=== PATIENT | female | born 1950 | race Caucasian/White ===

== ENCOUNTER → 2018-08-22 | Outpatient (CLI) | payer MEDICARE ==
--- NOTE | 2018-08-22 12:46 | BD ---
EXAMINATION TYPE: Axial Bone Density DATE OF EXAM: 08/22/2018 COMPARISON: 08.02.2016 CLINICAL HISTORY: 68 YR OLD FEMALE....ICD-10 CODE: M81.0 OSTEOPOROSIS Height: 65.2 Weight: 177 FRAX RISK QUESTIONS: NOTHING TO NOTE HERE RISK FACTORS HISTORY OF: Diet low in dairy products/other sources of calcium: YES A BIT Postmenopausal woman: 49 Lost more than 2 inches in height since high school: YES MEDICATIONS: Additional Medications: REFLUX MEDS, MULTI VIT, XANAX, ASPIRIN, ADAPEX, Additional History: GURD, ANXIETY, HARD OF HEARING EXAM MEASUREMENTS: Bone mineral densitometry was performed using the [employer] System. Bone mineral density as measured about the Lumbar spine is: ----- L1-L4(G/cm2): 1.374 T Score Values are as follows: ----- L1: 0.2 ----- L2: 0.0 ----- L3: 0.8 ----- L4: 4.8 ----- L1-L4: 1.6 Bone mineral density has: Increased 4.8% since study of: 08.02.2016 Bone mineral density about the R hip (g/cm2): 0.996 Bone mineral density about the L hip (g/cm2): 1.069 T Score values are as follows: -----R Neck: -1.0 -----L Neck: -1.0 -----R Total: -0.1 -----L Total: 0.5 Bone mineral density has: Increased 1.4% since study of: 08.02.2016 FRAX%s: THERE IS A 8.6% CHANCE FOR A MAJOR OSTEOPOROTIC FX AND A 0.9% FOR HIP.....PROBABILITY OF FX IN 10 YRS TIME IMPRESSION: No evidence for osteoporosis or osteopenia. NOTE: T-SCORE=SD OF THE YOUNG ADULT MEAN.
--- NOTE | 2018-08-23 13:38 | MM ---
Reason for exam: screening (asymptomatic). Last mammogram was performed 1 year and 1 month ago. History: Patient is postmenopausal. Physical Findings: A clinical breast exam by your physician is recommended on an annual basis and results should be correlated with mammographic findings. MG 3D Screening Mammo W/Cad Bilateral CC and MLO view(s) were taken. Prior study comparison: August 01, 2017, bilateral MG 3d screening mammo w/cad. August 02, 2016, bilateral MG 3d screening mammo w/cad. The breast tissue is heterogeneously dense. This may lower the sensitivity of mammography. There is chronic nodularity in the left breast. There is no discrete abnormality. ASSESSMENT: Negative, BI-RAD 1 RECOMMENDATION: Routine screening mammogram of both breasts in 1 year.
== END | disposition home or self-care (01) ==
LOC: RADMAMWWP 08:11
PROVIDERS: ATTEND Internal Medicine
DX: Z12.31 Encounter for screening mammogram for malignant neoplasm of breast (principal); M81.0 Age-related osteoporosis without current pathological fracture; Z87.39 Personal history of other diseases of the musculoskeletal system and connective tissue
CPT/HCPCS: 77063; 77067; 77080

== ENCOUNTER → 2020-10-19 | Outpatient (CLI) | payer MEDICARE ==
--- NOTE | 2020-10-19 11:08 | BD ---
EXAMINATION TYPE: Axial Bone Density DATE OF EXAM: 10/19/2020 COMPARISON: 08.22.2018 CLINICAL HISTORY: 70 YR OLD FEMALE....ICD-10 CODE: M81.0 AGE RELATED OSTEOPOROSIS Height: 65 Weight: 150 FRAX RISK QUESTIONS: NOTHING TO NOTE HERE RISK FACTORS HISTORY OF: Postmenopausal woman: YES, AT AGE 49 Hyperparathyroidism: NO Adrenal Insufficiency: NO MEDICATIONS: Additional Medications: REFLUX MEDS, ANDVIT D AND CALCIUM Additional History: PT CANNOT HEAR, MASKS MAKE DIFFICULT HISTORY TAKING, ARTHRITIS EXAM MEASUREMENTS: Bone mineral densitometry was performed using the [employer] System. Bone mineral density as measured about the Lumbar spine is: ----- L1-L4(G/cm2): 1.337 T Score Values are as follows: ----- L1: -0.6 ----- L2: 0.6 ----- L3: 1.2 ----- L4: 3.9 ----- L1-L4: 1.3 Bone mineral density has: Decreased -0.7% SINCE: 08.22.2018 Bone mineral density about the R hip (g/cm2): 0.938 Bone mineral density about the L hip (g/cm2): 0.989 T Score values are as follows: -----R Neck: -1.6 -----L Neck: -1.5 -----R Total: -0.6 -----L Total: -0.2 Bone mineral density has: Decreased -6.9% SINCE: 08.22.2018 FRAX%s: THERE IS A 10.9% CHANCE FOR A MAJOR OSTEOPOROTIC FX AND A 1.9% FOR HIP......PROBABILITY FO R FX IN 10 YRS TIME IMPRESSION: Osteopenia (T Score between -2.5 and -1) is now present femoral neck level both hips. Bone density de crease or diminished from prior. There is slightly increased risk of fracture and the patient may be considered for treatment. Re-Screen 2-5 years. NOTE: T-SCORE=SD OF THE YOUNG ADULT MEAN.
--- NOTE | 2020-10-20 10:16 | MM ---
Reason for exam: screening (asymptomatic). Last mammogram was performed 2 years and 2 months ago. History: Patient is postmenopausal. Physical Findings: A clinical breast exam by your physician is recommended on an annual basis and results should be correlated with mammographic findings. MG 3D Screening Mammo W/Cad Bilateral CC and MLO view(s) were taken. Prior study comparison: August 22, 2018, bilateral MG 3d screening mammo w/cad. August 01, 2017, bilateral MG 3d screening mammo w/cad. The breast tissue is heterogeneously dense. This may lower the sensitivity of mammography. There is chronic nodularity bilaterally. No significant changes when compared with prior studies. ASSESSMENT: Benign, BI-RAD 2 RECOMMENDATION: Routine screening mammogram of both breasts in 1 year.
== END | disposition home or self-care (01) ==
LOC: RADMAMWWP 10:26
PROVIDERS: ATTEND Internal Medicine
DX: Z12.31 Encounter for screening mammogram for malignant neoplasm of breast (principal); M85.89 Other specified disorders of bone density and structure, multiple sites
CPT/HCPCS: 77063; 77067; 77080

== ENCOUNTER → 2022-11-17 | Outpatient (CLI) | payer MEDICARE ==
--- NOTE | 2022-11-17 14:29 | BD ---
EXAMINATION TYPE: Axial Bone Density DATE OF EXAM: 11/17/2022 CLINICAL HISTORY: 72 years old Female. ICD-10 CODE: M85.851 OSTEOPENIA Height: 65 Weight: 161lb FRAX RISK QUESTIONS: Secondary Osteoporosis: RISK FACTORS HISTORY OF: Active: yes Postmenopausal woman: yes MEDICATIONS: Additional Medications: Omeprazole Additional History: EXAM MEASUREMENTS: Bone mineral densitometry was performed using the [employer] System. Bone mineral density as measured about the Lumbar spine is: ----- L1-L4(G/cm2): 1.248 T Score Values are as follows: ----- L1: -1.5 ----- L2: -0.3 ----- L3: 0.1 ----- L4: 2.9 ----- L1-L4: 0.6 Z Score Values are as follows: ----- L1: 0.0 ----- L2: 1.2 ----- L3: 1.6 ----- L4: 4.4 ----- L1-L4: 2.0 Bone mineral density has: Decreased -6.7% since study of: 10-19-20 Bone mineral density about the R hip (g/cm2): 0.925 Bone mineral density about the L hip (g/cm2): 0.970 T Score values are as follows: -----R Neck: -1.7 -----L Neck: -1.4 -----R Total: -0.7 -----L Total: -0.3 Z Score values are as follows: -----R Neck: 0.0 -----L Neck: 0.2 -----R Total: 0.8 -----L Total: 1.2 Bone mineral density has: Decreased -1.6% since study of: 10-19-20 FRAX%s: The graph provided illustrates a 11.7% chance for a major osteoporotic fx and a 2.4% chance f or the hips probability for fx in 10 years time. IMPRESSION: Osteopenia (T Score between -2.5 and -1). There is slightly increased risk of fracture and the patient may be considered for treatment. Re-Screen 2-5 years. NOTE: T-SCORE=SD OF THE YOUNG ADULT MEAN.
--- NOTE | 2022-11-20 08:09 | MM ---
Reason for Exam: Screening (asymptomatic). Last mammogram was performed 2 year(s) and 1 month(s) ago. Patient History: Menarche at age 11. First Full-Term at age 22. Postmenopausal. Patient has history of breast feeding. Risk Values: Patty 5 year model risk: 1.6%. NCI Lifetime model risk: 3.9%. Prior Study Comparison: 08/02/2016 Bilateral Screening Mammogram, [facility]. 08/01/2017 Bilateral Screening Mammogram, [facility]. 08/22/2018 Bilateral Screening Mammogram, [facility]. 10/19/2020 Bilateral Screening Mammogram, [facility]. Tissue Density: The breast tissue is heterogeneously dense. This may lower the sensitivity of mammography. Findings: Analyzed By CAD. There is no suspicious group of microcalcifications in either breast. 8 mm nodule 12:00 position right breast 5.3 cm from the nipple. Additional views are recommended. Overall Assessment: Incomplete: need additional imaging evaluation, BI-RAD 0 Management: Diagnostic Mammogram of the right breast. A clinical breast exam by your physician is recommended on an annual basis and results should be correlated with mammographic findings. Electronically signed and approved by: Iker Campo M.D. Radiologis
== END | disposition home or self-care (01) ==
LOC: RADMAMWWP 09:57
PROVIDERS: ATTEND Internal Medicine
DX: Z12.31 Encounter for screening mammogram for malignant neoplasm of breast (principal); M85.89 Other specified disorders of bone density and structure, multiple sites; Z78.0 Asymptomatic menopausal state
CPT/HCPCS: 77063; 77067; 77080

== ENCOUNTER → 2022-11-22 | Outpatient (CLI) | payer MEDICARE ==
--- NOTE | 2022-11-22 11:12 | MM ---
Reason for Exam: Additional evaluation requested from abnormal screening. Last screening mammogram was performed less than 1 month ago. Patient History: Menarche at age 11. First Full-Term at age 22. Postmenopausal. Patient has history of breast feeding. Previous chest radiation therapy. 1979, Benign Excisional Biopsy on the left side. Risk Values: Patty 5 year model risk: 1.9%. NCI Lifetime model risk: 4.6%. Prior Study Comparison: 08/02/2016 Bilateral Screening Mammogram, [facility]. 08/01/2017 Bilateral Screening Mammogram, [facility]. 10/19/2020 Bilateral Screening Mammogram, [facility]. 11/17/2022 Bilateral MG 3D screening mammo w/cad, [facility]. Tissue Density: Right: The breast tissue is heterogeneously dense. This may lower the sensitivity of mammography. Findings: Analyzed By CAD. There is a 7 mm oval with indistinct margins in the 3:00 position right breast posterior location 5 cm from the nipple. This is persistent on compression views in mediolateral view. Additional workup with ultrasound is recommended. Overall Assessment: Incomplete: need additional imaging evaluation, BI-RAD 0 Management: Diagnostic Breast Ultrasound of the right breast. A negative mammogram report should not preclude additional follow up of suspicious palpable abnormalities. Patient should continue monthly self breast exam. A clinical breast exam by your physician is recommended on an annual basis and results should be correlated with mammographic findings. Electronically signed and approved by: Syed Mejia D.O. Radiologis
--- NOTE | 2022-11-22 12:04 | USB ---
Reason for Exam: Additional evaluation requested from abnormal screening. Patient History: Menarche at age 11. First Full-Term at age 22. Postmenopausal. Patient has history of breast feeding. Previous chest radiation therapy. 1979, Benign Excisional Biopsy on the left side. Risk Values: Patty 5 year model risk: 1.9%. NCI Lifetime model risk: 4.6%. Technique: Method: Targeted. Prior Study Comparison: 08/22/2018 Bilateral Screening Mammogram, [facility]. 10/19/2020 Bilateral Screening Mammogram, [facility]. 11/17/2022 Bilateral MG 3D screening mammo w/cad, [facility]. Findings: The medial section of the breast of the right breast, the axilla of the right breast and the retroareolar of the right breast were scanned. There is a 0.8 x 0.5 x 0.9 cm oval hypoechoic area corresponding to the mammographic finding. Some vascular flow is evident in the midportion. Findings should be considered suspicious and biopsy is recommended. Overall Assessment: Suspicious, BI-RAD 4 Management: Ultrasound Core Biopsy of the right breast. A clinical breast exam by your physician is recommended on an annual basis and results should be correlated with mammographic findings. This exam should not preclude additional follow-up of suspicious palpable abnormalities. Results were given to the patient verbally at the time of exam. Electronically signed and approved by: Syed Mejia D.O. Radiologis
== END | disposition home or self-care (01) ==
LOC: RADMAMWWP 10:26
PROVIDERS: ATTEND Internal Medicine
DX: R92.8 Other abnormal and inconclusive findings on diagnostic imaging of breast (principal); Z78.0 Asymptomatic menopausal state
CPT/HCPCS: 77065; 76642; G0279; 77061

== ENCOUNTER → 2022-12-05 | Day surgery (SDC) | payer MEDICARE ==
--- NOTE | 2022-12-05 11:41 | MM ---
Reason for Exam: Post Procedure Mammogram. Last screening mammogram was performed less than 1 month ago. Patient History: Menarche at age 11. First Full-Term at age 22. Postmenopausal. Patient has history of breast feeding. Previous chest radiation therapy. 1979, Benign Excisional Biopsy on the left side. Risk Values: Patty 5 year model risk: 1.9%. NCI Lifetime model risk: 4.6%. Prior Study Comparison: 10/19/2020 Bilateral Screening Mammogram, [facility]. 11/17/2022 Bilateral MG 3D screening mammo w/cad, [facility]. 11/22/2022 Right MG 3D work up w/cad RT, [facility]. Tissue Density: Right: The breast tissue is heterogeneously dense. This may lower the sensitivity of mammography. Overall Assessment: Post procedure mammogram for marker placement Management: Post Mammogram for Jatinder Placement of the right breast. Electronically signed and approved by: Miguel Angel Cash DO
== END ==
LOC: RADUSWWP 07:56
PROVIDERS: ATTEND Surgery
DX: D05.11 Intraductal carcinoma in situ of right breast (principal)
CPT/HCPCS: 88305; 77065; 19083; A4648; 88341; 88342

== ENCOUNTER → 2022-12-13 | Outpatient (CLI) | payer MEDICARE ==
[2022-12-13 13:01] VITALS: BP 153/87; PULSE 98; RESP 17; TEMP 97.8
--- NOTE | 2022-12-13 13:37 | P.GSHP ---
History of Present Illness H&P Date: 12/13/22 Chief Complaint: DCIS right breast Myranda is a 72 year old white female seen in consultation for Dr. 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 [place] [address]. This resulted in a diagnostic mammogram of the right breast. A right breast ultrasound was performed on 320 [id number]. This revealed a 0.8 x 0.9 cm hypoechoic area corresponding to the mammographic findings. This was considered suspicious and ultrasound-guided core biopsy was recommended. [place] [address]. A follow-up mammogram revealed the clip to be questionably anterior to the site of the biopsy. 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 She does not feel any new lumps masses or nodules of concern in either breast. She is not complaining of any nipple discharge or skin changes. She had a left breast biopsy in the past by DR. Sushant Tinajero. This was a fibroid. She has not had any radiation of her breast. Caffiene: 1 cup/day nicotine: in remote past chocolate: occasional BCP: for bleeding in her 20's Family History: brother: cancer of the liver at 15 brother: esophogeal cancer mother: colon cancer Hormonal History: menarche: 10 , breast fed: yes, age at first : 22 menopause: 49 hormones: none; she is using ginkgo biloba breath secondary to hot flashes Surgical History: tonisl/adenoids left parotid; then a total parotid left breast biopsy benign left knee torn meniscus right mandible cyst left patotid for face sweating implant dental 2017 2021 bilateral cataract 2021 bilateral carpel tunnel Medical History: heart burn ? mitral valve change Social History: nicotine: remote past alcohol: beer drugs: none - Constitutional Constitutional: Reports sweats - EENT Eyes: bilateral as per HPI Ears: deny: tinnitus Ears, nose, mouth and throat: Denies headache, Denies sore throat - Breasts Breasts: bilateral: as per HPI - Cardiovascular Cardiovascular: Denies chest pain, Denies shortness of breath - Respiratory Respiratory: Denies cough, Denies 7 - Gastrointestinal Gastrointestinal: Reports as per HPI - Genitourinary (Female) Genitourinary: Denies dysuria, Denies hematuria - Menstruation Menstruation: Reports postmenopausal - Musculoskeletal Musculoskeletal: Reports as per HPI - Integumentary Integumentary: Denies pruritus, Denies rash - Neurological Neurological: Denies numbness, Denies weakness - Psychiatric Psychiatric: Reports anxiety - Endocrine Endocrine: Denies fatigue, Denies weight change - Hematologic/Lymphatic Comment: none - Allergic/Immunologic Allergic/Immunologic: Reports as per HPI Past Medical History Past Medical History: GERD/Reflux, Osteoarthritis (OA) Additional Past Medical History / Comment(s): hx migraines, Pre diabetic? Leaky Mitral valve? History of Any Multi-Drug Resistant Organisms: None Reported Past Surgical History: Adenoidectomy, Orthopedic Surgery, Tonsillectomy, Tubal Ligation Additional Past Surgical History / Comment(s): left total parpotid surgery, lipoma removal back and left breast lipoma and firoadenoma 1979, MULTIPLE MOUTH SURGERIES, BILATERAL CATARACTS, BILATERAL CARPAL TUNNEL Past Anesthesia/Blood Transfusion Reactions: Motion Sickness Past Psychological History: Anxiety Smoking Status: Former smoker Past Alcohol Use History: Occasional Additional Past Alcohol Use History / Comment(s): quit smoking when teenager Past Drug Use History: None Reported - Past Family History Brother(s) Family Medical History: Cancer Medications and Allergies Home Medications Medication Instructions Recorded Confirmed Type Omeprazole [PriLOSEC] 40 mg PO AC-BRKFST 06/10/15 12/13/22 History ALPRAZolam 1 tab PO AC-TID PRN 06/15/15 12/13/22 History Aspirin [[place] Aspirin EC] 81 mg PO DAILY 11/23/22 12/13/22 History Acetaminophen [Tylenol Extra 500 mg PO DAILY PRN 12/13/22 12/13/22 History Strength] Cholecalciferol [Vitamin D3 (125 125 mcg PO DAILY 12/13/22 12/13/22 History Mcg = 5000 Iu)] Melatonin 5 mg PO DIRECTED PRN 12/13/22 12/13/22 History Multivitamin [Multivitamins Adult 1 tablet PO DAILY 12/13/22 12/13/22 History Gummies] Zinc Gluconate [Zinc] 50 mg PO DAILY 12/13/22 12/13/22 History Allergies Allergy/AdvReac Type Severity Reaction Status Date / Time No Known Allergies Allergy Verified 12/13/22 12:39 Surgical - Exam Vital Signs Temp Pulse Resp BP 97.8 F 98 17 153/87 12/13/22 12:45 12/13/22 12:45 12/13/22 12:45 12/13/22 12:45 - General moderate distress - Eyes normal ocular movement - ENT decreased hearing - Neck trachea midline - Respiratory normal respiratory effort, clear to auscultation - Cardiovascular Heart Sounds: normal: S1, S2 - Abdomen Abdomen: soft, non tender, no guarding, no rigid, no rebound - Integumentary normal turgor - Neurologic no disoriented, no combative - Musculoskeletal normal gait - Psychiatric oriented to time, oriented to person, oriented to place, speech is normal, memory intact Breast Exam: BRA: 36B Inspection: Bilateral grade 2 ptosis Palpation: Right breast: Multi-positional exam fibrocystic changes, ecchymosis medial aspect of the right breast with a small hematoma at the 3 o'clock position Right axilla: No adenopathy of concern Left breast: Multi-positional exam fibrocystic changes no dominant masses or nodules of concern Left axilla: No adenopathy of concern Results Mammogram and ultrasound reviewed in detail with Dr. Mejia. 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 Cook
== END ==
LOC: WWCWWP 12:31
PROVIDERS: ATTEND Surgery
DX: D05.11 Intraductal carcinoma in situ of right breast (principal); K21.9 Gastro-esophageal reflux disease without esophagitis; M19.90 Unspecified osteoarthritis, unspecified site; Z79.82 Long term (current) use of aspirin; Z80.0 Family history of malignant neoplasm of digestive organs; Z87.891 Personal history of nicotine dependence

== ENCOUNTER → 2023-01-25 | Outpatient (CLI) | payer MEDICARE ==
--- NOTE | 2023-01-25 15:28 | P.PN ---
Subjective Progress Note Date: 01/25/23 Principal diagnosis: right breast DCIS at 3 oclock History of Present Illness H&P Date: 01-25-23 Chief Complaint: DCIS right breast Myranda is a 72 year old white female seen in consultation for Dr. 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 [place] [address]. This resulted in a diagnostic mammogram of the right breast. [place] [address]. This revealed a 0.8 x 0.9 cm hypoechoic area corresponding to the mammographic findings. This was considered suspicious and ultrasound-guided core biopsy was recommended. [place] [address]. A follow-up mammogram revealed the clip to be questionably anterior to the site of the biopsy. 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 She does not feel any new lumps masses or nodules of concern in either breast. She is not complaining of any nipple discharge or skin changes. She had a left breast biopsy in the past by DR. Sushant Tinajero. This was benign. The lesion is 3 o clock right breast. Caffiene: 1 cup/day nicotine: in remote past chocolate: occasional BCP: for bleeding in her 20's Family History: brother: cancer of the liver at 15 brother: esophogeal cancer mother: colon cancer Hormonal History: menarche: 10 , breast fed: yes, age at first : 22 menopause: 49 hormones: none; she is using ginkgo biloba secondary to hot flashes Surgical History: tonisl/adenoids left parotid; then a total parotid left breast biopsy benign left knee torn meniscus right mandible cyst left patotid for face sweating implant dental 2017 2021 bilateral cataract 2021 bilateral carpel tunnel Medical History: heart burn ? mitral valve change Social History: nicotine: remote past alcohol: beer drugs: none - Constitutional Constitutional: Reports sweats - EENT Eyes: bilateral as per HPI Ears: deny: tinnitus Ears, nose, mouth and throat: Denies headache, Denies sore throat - Breasts Breasts: bilateral: as per HPI - Cardiovascular Cardiovascular: Denies chest pain, Denies shortness of breath - Respiratory Respiratory: Denies cough - Gastrointestinal Gastrointestinal: Reports as per HPI - Genitourinary (Female) Genitourinary: Denies dysuria, Denies hematuria - Menstruation Menstruation: Reports postmenopausal - Musculoskeletal Musculoskeletal: Reports as per HPI - Integumentary Integumentary: Denies pruritus, Denies rash - Neurological Neurological: Denies numbness, Denies weakness - Psychiatric Psychiatric: Reports anxiety - Endocrine Endocrine: Denies fatigue, Denies weight change - Hematologic/Lymphatic Comment: none - Allergic/Immunologic Allergic/Immunologic: Reports as per HPI Past Medical History Past Medical History: GERD/Reflux, Osteoarthritis (OA) Additional Past Medical History / Comment(s): hx migraines, Pre diabetic? Leaky Mitral valve? History of Any Multi-Drug Resistant Organisms: None Reported Past Surgical History: Adenoidectomy, Orthopedic Surgery, Tonsillectomy, Tubal Ligation Additional Past Surgical History / Comment(s): left total parpotid surgery, lipoma removal back and left breast lipoma and firoadenoma 1979, MULTIPLE MOUTH SURGERIES, BILATERAL CATARACTS, BILATERAL CARPAL TUNNEL Past Anesthesia/Blood Transfusion Reactions: Motion Sickness Past Psychological History: Anxiety Smoking Status: Former smoker Past Alcohol Use History: Occasional Additional Past Alcohol Use History / Comment(s): quit smoking when teenager Past Drug Use History: None Reported - Past Family History Brother(s) Family Medical History: Cancer Medications and Allergies Home Medications Medication Instructions Recorded Confirmed Type Omeprazole [PriLOSEC] 40 mg PO AC-BRKFST 06/10/15 12/13/22 History ALPRAZolam 1 tab PO AC-TID PRN 06/15/15 12/13/22 History Aspirin [[place] Aspirin EC] 81 mg PO DAILY 11/23/22 12/13/22 History Acetaminophen [Tylenol Extra 500 mg PO DAILY PRN 12/13/22 12/13/22 History Strength] Cholecalciferol [Vitamin D3 (125 125 mcg PO DAILY 12/13/22 12/13/22 History Mcg = 5000 Iu)] Melatonin 5 mg PO DIRECTED PRN 12/13/22 12/13/22 History Multivitamin [Multivitamins Adult 1 tablet PO DAILY 12/13/22 12/13/22 History Gummies] Zinc Gluconate [Zinc] 50 mg PO DAILY 12/13/22 12/13/22 History Allergies Allergy/AdvReac Type Severity Reaction Status Date / Time No Known Allergies Allergy Verified 12/13/22 12:39 Objective - Constitutional General appearance: Present: cooperative - EENT Eyes: Present: EOMI ENT: Present: hearing grossly normal - Neck Neck: Present: normal ROM - Respiratory Respiratory: bilateral: CTA - Cardiovascular Rhythm: regular Heart sounds: normal: S1, S2 - Gastrointestinal General gastrointestinal: Present: soft - Integumentary Integumentary: Present: normal turgor - Musculoskeletal Musculoskeletal: Present: gait normal - Psychiatric Psychiatric: Present: A&O x's 3, appropriate affect, intact judgment & insight - Additional findings Additional findings: Breast Exam: BRA: 36B Inspection: Bilateral grade 2 ptosis Palpation: Right breast: Multi-positional exam fibrocystic changes Right axilla: No adenopathy of concern Left breast: Multi-positional exam fibrocystic changes no dominant masses or nodules of concern Left axilla: No adenopathy of concern Assessment and Plan Assessment: 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 Cook
[2023-01-25 15:30] VITALS: BP 161/78; PULSE 98; RESP 17; TEMP 97.8
== END ==
LOC: WWCWWP 14:59
PROVIDERS: ATTEND Surgery
DX: Z80.0 Family history of malignant neoplasm of digestive organs (principal); K21.9 Gastro-esophageal reflux disease without esophagitis; M19.90 Unspecified osteoarthritis, unspecified site; Z87.891 Personal history of nicotine dependence; Z80.9 Family history of malignant neoplasm, unspecified; Z79.82 Long term (current) use of aspirin

== ENCOUNTER 2023-02-06 08:50 | Day surgery (SDC) | payer MEDICARE ==
[2023-02-01 12:15] VITALS: BMI 24.5
[~2023-02-06 08:50] MED LIST: DEXAMETHASONE SOD PHOSPHATE 4 MG/ML 1 ML VIAL IV ONE; HEPARIN SODIUM,PORCINE/PF 5,000 UNIT/0.5 ML SYRINGE SQ PRN; HYDROmorphone 0.5 MG/0.5 ML SYRINGE IVP PRN; LIDOCAINE 1% (10MG/ML) FOR IV START INTRADERMA PRN; METOCLOPRAMIDE 5 MG/ML 2 ML VIAL IVP PRN; ONDANSETRON 4 MG/2 ML VIAL IVP ONE; Pre Op ABX Message 1 EACH MISC MISCELLANE ONE
[2023-02-06] MEDS ORDERED: ALPRAZolam 0.5 MG TAB ONE (09:47)
[2023-02-06] MEDS ORDERED: ALPRAZolam 0.5 MG TAB PO ONE (09:48)
[2023-02-06] MEDS: LACTATED RINGERS 1,000 ML IV SCH ×2 (09:48→13:35)
[2023-02-06] MEDS ORDERED: LIDOCAINE 1% (10MG/ML) FOR IV START SQ ONE (10:18)
[2023-02-06] MEDS ORDERED: PROPOFOL 10 MG/ML 20 ML VIAL IV ONE (11:25)
[2023-02-06] MEDS ORDERED: LIDOCAINE 2% INJ 20 MG/ML (2 ML VIAL) ONE (11:25)
[2023-02-06] MEDS ORDERED: fentaNYL (PF) 50 MCG/ML 2 ML AMP ONE (11:25)
[2023-02-06] MEDS ORDERED: SUCCINYLCHOLINE CHLORIDE 200 MG/10 ML VIAL IV ONE (11:25)
--- NOTE | 2023-02-06 12:20 | P.OP ---
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 She underwent needle localization in the radiology suite. She was then brought to the operative suite. Following induction of anesthesia the right breast was prepped and draped in a sterile fashion. Using a periareolar incision dissection was performed down to the tip of the needle. Surrounding tissue was excised. Posteriorly dissection was performed onto the pectoralis muscle. The cavity was 3 x 3 cm. A superior pillar was developed which was 2 x 2 centimeters and inferior pillar which was normal by 2 cm was developed. Total tissue transfer was 15 cm. The wound was well irrigated. After we were assured that hemostasis was attained Titanium clips were placed to gregorio the cavity. The specimen was painted for orientation. It was reviewed with radiology and it would be was noted that the lesion as well as the clip were removed. The superior and inferior pillar were brought together using 3-0 Vicryl suture. This is followed by closure of the subcutaneous tissue with 3-0 Vicryl suture. The subcuticular closure was with a 4-0 Monocryl. The patient tolerated the procedure in stable condition. All instrument and sponge counts were correct at the end of the case.
--- NOTE | 2023-02-06 12:21 | P.DS ---
Providers Attending physician: Reta Maldonado Primary care physician: Sona Cook Plan - Discharge Summary Discharge Rx Participant: Yes New Discharge Prescriptions: No Action Omeprazole [PriLOSEC] 40 mg PO AC-BRKFST ALPRAZolam 1 tab PO AC-TID PRN PRN Reason: Anxiety Aspirin [[place] Aspirin EC] 81 mg PO DAILY Multivitamin [Multivitamins Adult Gummies] 1 tablet PO DAILY Discharge Medication List Omeprazole [PriLOSEC] 40 mg PO AC-BRKFST 06/10/15 [History] ALPRAZolam 1 tab PO AC-TID PRN 06/15/15 [History] Aspirin [[place] Aspirin EC] 81 mg PO DAILY 11/23/22 [History] Multivitamin [Multivitamins Adult Gummies] 1 tablet PO DAILY 12/13/22 [History] Follow up Appointment(s)/Referral(s): Reta Maldonado MD [STAFF PHYSICIAN] - 1 Week Activity/Diet/Wound Care/Special Instructions: Do not drive for 24 hours from discharge or if taking narcotic pain medicine May shower after 48 hours Wear bra at all times Discharge Disposition: HOME SELF-CARE
--- NOTE | 2023-02-06 12:26 | P.NAPBC ---
NAPBC Queries - NAPBC Queries Was patient's case review presented at [facility] tumor board? If no, comment.: Yes Was patient's pathology reviewed at [facility]? If no, comment.: Yes Was breast conservation surgery offered? If no, comment.: Yes Was sentinel node biopsy offered? If no, comment.: No Was diagnosis confirmed by percutaneous core biopsy? If no, comment.: Yes Is patient mastectomy patient?: No Was a preop referral to reconstructive surgeon offered?: No Clinical Stage: stage 0
[2023-02-06 12:32] VITALS: TEMP 97
[2023-02-06] MEDS ORDERED: HYDROcodone/APAP 5-325MG 1 EACH TAB ONE ×2 (14:03→14:05)
[2023-02-06] MEDS ORDERED: HYDROcodone/APAP 5-325MG 1 EACH TAB PO ONE (14:05)
[2023-02-06 14:35] VITALS: BP 120/47; PULSE 86; RESP 16
--- NOTE | 2023-02-14 08:37 | MM ---
Reason for Exam: Post Procedure Mammogram. Last screening mammogram was performed 3 month(s) ago. Patient History: Menarche at age 11. First Full-Term at age 22. Postmenopausal. Patient has history of breast feeding. Breast cancer, right, age 72. 12/05/2022, Malignant US biopsy breast VAD RT on the right side. 1979, Benign Excisional Biopsy on the left side. Prior Study Comparison: 11/17/2022 Bilateral MG 3D screening mammo w/cad, [facility]. 11/22/2022 Right MG 3D work up w/cad RT, [facility] 12/05/2022 Right MG diagnostic mammo RT wo CAD, [facility]. Tissue Density: Right: The breast tissue is heterogeneously dense. This may lower the sensitivity of mammography. Pathology Description: Location: 3 o'clock, upper outer quadrant, posterior. The procedure was explained to the patient and all questions were answered. The potential risks including but not limited to bleeding, infection, and potential need for additional work up were discussed. Informed, written consent was obtained. The correct site was marked. A time out was performed. A ultrasound guided wire localization was performed for the lesion located in the right breast at 3:00 5 cm from the nipple. This was described on the previous report. The skin was prepped in the usual manner. Local anesthetic was administered to the access site using approximately 8 mL of lidocaine. The abnormality was approached from the superior medial aspect. A Kopans needle was placed adjacent to the abnormality under ultrasound guidance and the wire was deployed. Needle was then removed. Post-procedure mammographic images were obtained to document positioning. The wire was secured to the patient's skin with a dressing. The patient tolerated the procedure well and left the department in good. The specimen contains a biopsy clip and wire localization with mass. Findings were suggested in person with the ordering provider. IMPRESSION: Successful ultrasound guided wire localization of right breast mass. Pathology Results: Result: Malignant, Invasive ductal carcinoma. RIGHT BREAST, LUMPECTOMY: Microinvasive carcinoma associated with biopsy site change and intermediate grade ductal carcinoma in situ (DCIS). See surgical pathology cancer case summary and comment. All margins negative for invasive and in situ carcinoma. Overall Assessment: Malignant Assessment: MG diagnostic mammo RT wo CAD - Right: Known biopsy proven malignancy, BI-RAD 6. Management: Surgical Consultation of the right breast. Electronically signed and approved by: Pelon Merritt D.O.
== END 2023-02-06 14:41 | disposition home or self-care (01) ==
LOC: OR 08:50
PROVIDERS: ATTEND Surgery
DX: D05.11 Intraductal carcinoma in situ of right breast (principal); K21.9 Gastro-esophageal reflux disease without esophagitis; M19.90 Unspecified osteoarthritis, unspecified site; F41.9 Anxiety disorder, unspecified; Z98.51 Tubal ligation status; Z90.89 Acquired absence of other organs; Z87.891 Personal history of nicotine dependence; Z98.890 Other specified postprocedural states
CPT/HCPCS: 19125; 14001; 88342; 88307; 88341; 77065; 76098; 19285; C1819; J0330; J1100; J2765; J2405; J3010; J2704; J1170; J1644; J2001

== ENCOUNTER → 2023-02-16 | Outpatient (CLI) | payer MEDICARE ==
[2023-02-16 09:17] VITALS: BP 145/77; PULSE 95; RESP 18; TEMP 98.3
--- NOTE | 2023-02-16 09:28 | P.PN ---
Progress Note - Text Progress Note Date: 02/16/23 Myranda is status post right breast lumpectomy for DCIS on 02-06-23. There was a focus of microinvasion, all margins (-). Closest margin to DCIS inferior 1 mm. she tolerated the surgery without difficulty. Size of the lesion was 9 mm. Physical examination: Lungs: Clear Heart: Regular rate and rhythm Incision: Clean and dry Impression: Patient doing well postoperative Plan: Follow up here in 4 months Follow-up medical oncology and radiation oncology CC: Dr. Donaldson
== END ==
LOC: WWCWWP 09:07
PROVIDERS: ATTEND Surgery
DX: D05.11 Intraductal carcinoma in situ of right breast (principal); Z87.891 Personal history of nicotine dependence

== ENCOUNTER → 2023-04-19 | Outpatient (CLI) | payer MEDICARE ==
--- NOTE | 2023-04-19 12:51 | MR ---
EXAMINATION TYPE: MR knee RT wo con DATE OF EXAM: 04/19/2023 COMPARISON: None HISTORY: Pain in right knee TECHNIQUE: Multiplanar, multisequence imaging of the right knee is performed without IV contrast. FINDINGS: MEDIAL MENISCUS: Oblique tear posterior horn medial meniscus extends to the tibial articular surface. LATERAL MENISCUS: Anterior and posterior horns are intact without tear. CRUCIATE LIGAMENTS: The anterior and posterior cruciate ligaments are intact and unremarkable. COLLATERAL LIGAMENTS: The medial collateral ligament and lateral collateral ligament complex are inta ct and unremarkable. EXTENSOR MECHANISM: Visualized quadriceps and patellar tendons are intact. EFFUSION: No significant suprapatellar joint effusion. POPLITEAL CYST: 3.5 cm Sheikh's cyst noted. TRICOMPARTMENT SPACES: Mild to moderate narrowing medial tibiofemoral joint space as well as the gomes llofemoral joint space. CARTILAGE: Mild cartilaginous thinning noted without focal defects seen. BONE MARROW SIGNAL: No focal abnormal marrow signal is appreciated. OTHER: No additional significant abnormality is appreciated. IMPRESSION: 1. Oblique tear posterior horn medial meniscus with extension into the meniscal body. 2. Sheikh's cyst
== END | disposition home or self-care (01) ==
LOC: RADMRIMAIN 11:15
PROVIDERS: ATTEND Orthopaedic Surgery
DX: M23.221 Derangement of posterior horn of medial meniscus due to old tear or injury, right knee (principal); M71.21 Synovial cyst of popliteal space [Baker], right knee

== ENCOUNTER → 2023-06-20 | Outpatient (CLI) | payer MEDICARE ==
--- NOTE | 2023-06-20 11:38 | P.PN ---
Subjective Progress Note Date: 06/20/23 right breast DCIS at 3 oclock History of Present Illness Chief Complaint: DCIS right breast Myranda is a 72 year old white female seen in consultation for Dr. 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 [place] [address]. This resulted in a diagnostic mammogram of the right breast. [place] [address]. This revealed a 0.8 x 0.9 cm hypoechoic area corresponding to the mammographic findings. This was considered suspicious and ultrasound-guided core biopsy was recommended. [place] [address]. A follow-up mammogram revealed the clip to be questionably anterior to the site of the biopsy. 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 She does not feel any new lumps masses or nodules of concern in either breast. She is not complaining of any nipple discharge or skin changes. She had a left breast biopsy in the past by DR. Sushant Tinajero. This was benign. She underwent a right breast lumpectomy for DCIS on 02-06-23. There was a focus of microinvasion, all her margins were (-). The closest being 1 mm from the inferior margin. Note radiation oncology reviewed 03-07-23; she opted for no radiation she saw medical oncology Dr. Pinon and told still considered stage 0 and chose no hormone therapy Caffiene: 1 cup/day nicotine: in remote past chocolate: occasional BCP: for bleeding in her 20's Family History: brother: cancer of the liver at 15 brother: esophogeal cancer mother: colon cancer Hormonal History: menarche: 10 , breast fed: yes, age at first : 22 menopause: 49 hormones: none; she is using ginkgo biloba secondary to hot flashes Surgical History: tonisl/adenoids left parotid; then a total parotid left breast biopsy benign left knee torn meniscus right mandible cyst left patotid for face sweating implant dental 2017 2021 bilateral cataract 2021 bilateral carpel tunnel Medical History: heart burn ? mitral valve change Social History: nicotine: remote past alcohol: beer drugs: none - Constitutional Constitutional: Reports sweats - EENT Eyes: bilateral as per HPI Ears: deny: tinnitus Ears, nose, mouth and throat: Denies headache, Denies sore throat - Breasts Breasts: bilateral: as per HPI - Cardiovascular Cardiovascular: Denies chest pain, Denies shortness of breath - Respiratory Respiratory: Denies cough - Gastrointestinal Gastrointestinal: Reports as per HPI - Genitourinary (Female) Genitourinary: Denies dysuria, Denies hematuria - Menstruation Menstruation: Reports postmenopausal - Musculoskeletal Musculoskeletal: Reports as per HPI - Integumentary Integumentary: Denies pruritus, Denies rash - Neurological Neurological: Denies numbness, Denies weakness - Psychiatric Psychiatric: Reports anxiety - Endocrine Endocrine: Denies fatigue, Denies weight change - Hematologic/Lymphatic Comment: none - Allergic/Immunologic Allergic/Immunologic: Reports as per HPI Past Medical History Past Medical History: GERD/Reflux, Osteoarthritis (OA) Additional Past Medical History / Comment(s): hx migraines, Pre diabetic? Leaky Mitral valve? History of Any Multi-Drug Resistant Organisms: None Reported Past Surgical History: Adenoidectomy, Orthopedic Surgery, Tonsillectomy, Tubal Ligation Additional Past Surgical History / Comment(s): left total parpotid surgery, lipoma removal back and left breast lipoma and firoadenoma 1979, MULTIPLE MOUTH SURGERIES, BILATERAL CATARACTS, BILATERAL CARPAL TUNNEL Past Anesthesia/Blood Transfusion Reactions: Motion Sickness Past Psychological History: Anxiety Smoking Status: Former smoker Past Alcohol Use History: Occasional Additional Past Alcohol Use History / Comment(s): quit smoking when teenager Past Drug Use History: None Reported - Past Family History Brother(s) Family Medical History: Cancer Medications and Allergies Home Medications Medication Instructions Recorded Confirmed Type Omeprazole [PriLOSEC] 40 mg PO AC-BRKFST 06/10/15 12/13/22 History ALPRAZolam 1 tab PO AC-TID PRN 06/15/15 12/13/22 History Aspirin [[place] Aspirin EC] 81 mg PO DAILY 11/23/22 12/13/22 History Acetaminophen [Tylenol Extra 500 mg PO DAILY PRN 12/13/22 12/13/22 History Strength] Cholecalciferol [Vitamin D3 (125 125 mcg PO DAILY 12/13/22 12/13/22 History Mcg = 5000 Iu)] Melatonin 5 mg PO DIRECTED PRN 12/13/22 12/13/22 History Multivitamin [Multivitamins Adult 1 tablet PO DAILY 12/13/22 12/13/22 History Gummies] Zinc Gluconate [Zinc] 50 mg PO DAILY 12/13/22 12/13/22 History Allergies Allergy/AdvReac Type Severity Reaction Status Date / Time No Known Allergies Allergy Verified 12/13/22 12:39 Objective - Vital Signs Vital signs: Vital Signs Temp 98.3 F 06/20/23 11:21 Pulse 64 06/20/23 11:21 Resp 17 06/20/23 11:21 BP 148/79 06/20/23 11:21 Pulse Ox 99 06/20/23 11:21 FiO2 Intake & Output 06/19/23 06/20/23 06/20/23 18:59 06:59 18:59 Weight 63.957 kg - Constitutional General appearance: Present: cooperative - EENT Eyes: Present: EOMI ENT: Present: hearing grossly normal - Neck Neck: Present: normal ROM - Respiratory Respiratory: bilateral: CTA - Cardiovascular Rhythm: regular Heart sounds: normal: S1, S2 - Integumentary Integumentary: Present: normal turgor - Musculoskeletal Musculoskeletal: Present: gait normal - Psychiatric Psychiatric: Present: A&O x's 3, appropriate affect, intact judgment & insight - Additional findings Additional findings: Breast Exam: BRA: 36B Inspection: Bilateral grade 2 ptosis Palpation: Right breast: Multi-positional exam fibrocystic changes, well healed scar right breast Right axilla: No adenopathy of concern Left breast: Multi-positional exam fibrocystic changes no dominant masses or nodules of concern Left axilla: No adenopathy of concern Assessment and Plan Assessment: Impression: Right breast ductal carcinoma in situ 9 mm Decreased hearing Questionable mitral valve disease 6 month right breast mammogram to be done in July Plan: right breast mammogram in July and follow up after bilateral mammogram in October 2023 with appointment CC: Dr. Joey villegas
[2023-06-20 11:44] VITALS: BP 148/79; PULSE 64; RESP 17; TEMP 98.3
== END ==
LOC: WWCWWP 10:27
PROVIDERS: ATTEND Surgery
DX: D05.11 Intraductal carcinoma in situ of right breast (principal); K21.9 Gastro-esophageal reflux disease without esophagitis; M19.90 Unspecified osteoarthritis, unspecified site; H91.90 Unspecified hearing loss, unspecified ear; Z85.3 Personal history of malignant neoplasm of breast; Z87.891 Personal history of nicotine dependence; Z79.82 Long term (current) use of aspirin

== ENCOUNTER → 2023-06-21 | Outpatient (CLI) | payer MEDICARE ==
[2023-06-21 20:31] LABS: Anion Gap 11.4 mmol/L (4.00-12.00); Carbon Dioxide 27.6 mmol/L (21.6-31.8); Potassium 4.6 mmol/L (3.5-5.5)
[2023-06-22 01:04] LABS: Basophils # (A) 0.03 X 10*3/uL (0.00-0.10); Basophils % (A) 0.5 %; Eosinophils # (A) 0.11 X 10*3/uL (0.04-0.35); HCT 40.7 % (37.2-46.3); Lymphocytes # (A) 1.72 X 10*3/uL (0.90-5.00); MCHC 31.9 d/dL (32.0-37.0); MCV 90.6 FL (80.0-97.0); Mean Platelet Volume 13.1 FL (9.5-12.2); NRBC Per 100 WBC 0 X 10*3/uL (0.00-0.01); Neutrophils # (A) 3.17 X 10*3/uL (1.80-7.70); Neutrophils % (A) 57.3 %; Platelet Count 306 X 10*3/uL (140-440); RBC 4.49 X 10*6/uL (4.10-5.20); RDW 13.2 % (11.5-14.5); WBC 5.54 X 10*3/uL (4.50-10.00)
== END | disposition home or self-care (01) ==
LOC: LABPAT 13:16
PROVIDERS: ATTEND Orthopaedic Surgery
DX: Z01.812 Encounter for preprocedural laboratory examination (principal); M23.91 Unspecified internal derangement of right knee
CPT/HCPCS: 36415; 80051; 85025

== ENCOUNTER 2023-06-28 10:51 | Day surgery (SDC) | payer MEDICARE ==
--- NOTE | 2023-06-27 23:23 | HP ---
HISTORY AND PHYSICAL DATE OF SCHEDULED SURGERY: 06/28/2023. HISTORY OF PRESENT ILLNESS: Myranda Rodriguez is a 73-year-old patient who is seen with progressive right knee pain. We discussed options for treatment, she elected to proceed with right knee arthroscopy. Consent was obtained. PAST MEDICAL HISTORY: Hypertension, hyperlipidemia, anxiety. PAST SURGICAL HISTORY: Parotidectomy, excision lipoma. DAILY MEDICATIONS: 1. Atorvastatin. 2. Omeprazole. 3. Xanax. 4. Various vitamins. ALLERGIES: None. SOCIAL HISTORY: She denies tobacco use. PHYSICAL EVALUATION OF RIGHT KNEE: Range of motion is -3/4 to 110 degrees. Mild effusion. Tenderness along the medial and lateral joint lines. Positive medial Leanne's. Ligaments stable. Hip rotation without pain. Distal neurovascular exam is intact. RADIOGRAPHS: Right knee radiographs revealed mild osteoarthritis. IMPRESSION: 1. Internal derangement right knee with medial meniscal tear. 2. Gastroesophageal reflux disease. 3. Hyperlipidemia. PLAN: Right knee arthroscopy with partial medial meniscectomy and debridement. MMODL / IJN: [id number] /
[~2023-06-28 10:51] MED LIST changes: -HEPARIN SODIUM,PORCINE/PF 5,000 UNIT/0.5 ML SYRINGE SQ PRN; -HYDROmorphone 0.5 MG/0.5 ML SYRINGE IVP PRN; +LACTATED RINGERS 1,000 ML IV SCH; -METOCLOPRAMIDE 5 MG/ML 2 ML VIAL IVP PRN; +MIDAZOLAM 2 MG/2 ML VIAL IV PRN; -Pre Op ABX Message 1 EACH MISC MISCELLANE ONE
[2023-06-28] MEDS ORDERED: MIDAZOLAM 2 MG/2 ML VIAL ONE (11:39)
[2023-06-28] MEDS ORDERED: fentaNYL (PF) 50 MCG/ML 2 ML AMP ONE (11:39)
[2023-06-28] MEDS ORDERED: BUPIVACAINE (PF) 0.25% 30 ML VIAL SQ ONE (11:39)
[2023-06-28] MEDS ORDERED: LIDOCAINE 1% INJ 10MG/ML (20 ML MDV) ONE (11:39)
[2023-06-28] MEDS ORDERED: PROPOFOL 10 MG/ML 20 ML VIAL IV ONE (11:39)
--- NOTE | 2023-06-28 12:23 | P.OP ---
Date of Procedure: 06/28/23 Preoperative Diagnosis: Internal derangement right knee Postoperative Diagnosis: 1. Tear medial and lateral meniscus right knee 2. Grade 4 chondromalacia medial femoral condyle right knee 3. Reactive synovitis medial, lateral and suprapatellar compartments right knee Procedure(s) Performed: 1. Arthroscopic partial medial and lateral meniscectomy right knee 2. Arthroscopic microfracture medial femoral condyle right knee 3. Arthroscopic partial synovectomy medial, lateral and suprapatellar compartments right knee Anesthesia: ONDINAA, local Surgeon: Sky Todd Estimated Blood Loss (ml): 6 Pathology: none sent Condition: stable Disposition: PACU Indications for Procedure: 73-year-old patient seen with progressive right knee pain. After having treatment options discussed, she elected to proceed with arthroscopy. Operative Findings: see description of procedure Description of Procedure: Patient was taken to the operative suite. Patient underwent a general anesthetic by the department of anesthesia. Patient was given preoperative antibiotics. The right lower extremity was placed in a well-padded arthroscopic leg bradley. The right leg was prepped and draped in the normal sterile orthopedic fashion. A lateral parapatellar and suprapatellar incision was made. Trochars were inserted. Arthroscopy was initiated. Suprapatellar pouch revealed diffuse thick reactive synovitis. The patellofemoral joint appeared to articulate congruently. There was grade 1/2 chondromalacia of the patellofemoral joint with no tears. The scope was guided into the medial gutter. No loose bodies or plica were identified. The scope was then guided into the medial compartment. A medial parapatellar incision was made. Trocar inserted followed by probe. Was a complex tear involving the posterior horn of the medial meniscus. There were grade 3/4 chondromalacia changes on the weightbearing surface of the medial femoral condyle with osteochondral flap tear present. There was thick reactive synovitis anteriorly. I performed a partial medial meniscectomy getting down to stable meniscal tissue. I performed a chondroplasty of the medial femoral condyle getting down to stable osteochondral tissue. I performed a partial synovectomy decompressing the reactive synovitis. I did note a grade 4 chondromalacia/exposed bone along the weightbearing surface of the medial femoral condyle. I introduced a microfracture awl and I performed a microfracture to the area of exposed bone penetrating the bone with resultant bleeding at the microfracture site. The residual meniscus was probed and was found to be stable. The residual osteochondral surface was stable. There was good decompression of the synovitis. Scope and probe were then guided into the intercondylar notch. Cruciates were identified, probed and found to be stable. The scope and probe were then guided into lateral compartment. Lateral meniscus revealed a small radial tear in the midbody area. There was no significant chondromalacia present in the lateral compartment. There was reactive synovitis and. I performed a partial lateral meniscectomy getting down to stable meniscal tissue. I performed a partial synovectomy decompressing the reactive synovitis. The residual meniscus was found to be stable. There was good decompression of the synovitis. The scope was in guided back into the suprapatellar compartment. I introduced a motorized shaver into the suprapatellar compartment. I debrided some piecemeal fragments of meniscus that I encountered. I performed a partial synovectomy. The shaver was now removed. There was good decompression of the synovitis. I took one more look around the entire knee, no residual debris. Instruments were now removed from the joint. The joint was infiltrated with .25% Marcaine. Steri-Strips were applied to the portal sites. Sterile dressings were applied. The patient was placed into a AMBREEN hose. No tourniquet was utilized. The patient was awakened, transferred to a bed and taken to recovery stable satisfactory condition.
[2023-06-28] MEDS: HYDROmorphone 0.5 MG/0.5 ML SYRINGE IVP PRN ×2 (12:34→12:56)
[2023-06-28 12:39] VITALS: TEMP 97.1
[2023-06-28] MEDS ORDERED: HYDROmorphone 0.5 MG/0.5 ML SYRINGE IVP ONE (12:43)
[2023-06-28] MEDS ORDERED: LACTATED RINGERS 1,000 ML IV ONE (13:25)
[2023-06-28] MEDS ORDERED: traMADol 50 MG TAB ONE (13:49)
[2023-06-28] MEDS ORDERED: traMADol 50 MG TAB PO ONE (13:50)
[2023-06-28 14:12] VITALS: BP 145/70; PULSE 75; RESP 18
== END 2023-06-28 14:19 | disposition home or self-care (01) ==
LOC: OR 10:51
PROVIDERS: ATTEND Orthopaedic Surgery
DX: S83.281A Other tear of lateral meniscus, current injury, right knee, initial encounter (principal); S83.241A Other tear of medial meniscus, current injury, right knee, initial encounter; M65.161 Other infective (teno)synovitis, right knee; K21.9 Gastro-esophageal reflux disease without esophagitis; I10 Essential (primary) hypertension; E78.5 Hyperlipidemia, unspecified; F41.9 Anxiety disorder, unspecified; Z79.899 Other long term (current) drug therapy; X58.XXXA Exposure to other specified factors, initial encounter
CPT/HCPCS: 29879; 29880; J2250; J1100; J2405; J0690; J2001; J3010; J2704; J1170; J0665

== ENCOUNTER → 2023-08-13 | Outpatient (CLI) | payer MEDICARE ==
--- NOTE | 2023-08-13 08:48 | MM ---
Reason for Exam: Follow-up at short interval from prior study. Last screening mammogram was performed 9 month(s) ago. Patient History: Menarche at age 11. First Full-Term at age 22. Postmenopausal. Patient has history of breast feeding. Breast cancer, right, age 72. Breast cancer, right, age 73. 02/06/2023, Lumpectomy on the Right side. 02/06/2023, Malignant US breast localization RT on the right side. 12/05/2022, Malignant US biopsy breast VAD RT on the right side. 1979, Benign Excisional Biopsy on the left side. Prior Study Comparison: 11/22/2022 Right MG 3D work up w/cad RT, [facility]. 12/05/2022 Right MG diagnostic mammo RT wo CAD, [facility]. 02/06/2023 Right MG diagnostic mammo RT wo CAD, [facility]. Tissue Density: Right: There are scattered fibroglandular densities. Findings: Analyzed By CAD. Pattern appears stable. Multiple surgical clips are within the right breast lumpectomy site. No significant interval change evident. No suspicious groups of microcalcifications, spiculated or lobular masses, architectural distortion or other secondary signs of malignancy are mammographically apparent. Overall Assessment: Benign, BI-RAD 2 Management: Diagnostic Mammogram of both breasts in 4 months. A negative mammogram report should not preclude additional follow up of suspicious palpable abnormalities. Patient should continue monthly self breast exam. A clinical breast exam by your physician is recommended on an annual basis and results should be correlated with mammographic findings. Electronically signed and approved by: Syed Mejia D.O. Radiologis
== END | disposition home or self-care (01) ==
LOC: RADMAMWWP 08:27
PROVIDERS: ATTEND Surgery
DX: R92.321 Mammographic fibroglandular density, right breast (principal); Z85.3 Personal history of malignant neoplasm of breast; Z78.0 Asymptomatic menopausal state
CPT/HCPCS: 77065; G0279; 77061

== ENCOUNTER → 2023-08-31 | Outpatient (CLI) | payer MEDICARE ==
[2023-08-31 11:58] VITALS: BP 135/74; PULSE 60; RESP 17; TEMP 97.8
--- NOTE | 2023-08-31 12:17 | P.PN ---
Subjective Progress Note Date: 08/31/23 08-31-23 right breast DCIS at 3 oclock History of Present Illness Chief Complaint: DCIS right breast Myranda is a 72 year old white female seen in consultation for Dr. 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 [place] [address]. This resulted in a diagnostic mammogram of the right breast. [place] [address]. This revealed a 0.8 x 0.9 cm hypoechoic area corresponding to the mammographic findings. This was considered suspicious and ultrasound-guided core biopsy was recommended. [place] [address]. A follow-up mammogram revealed the clip to be questionably anterior to the site of the biopsy. 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 She does not feel any new lumps masses or nodules of concern in either breast. She is not complaining of any nipple discharge or skin changes. She had a left breast biopsy in the past by DR. Sushant Tinajero. This was benign. She underwent a right breast lumpectomy for DCIS on 02-06-23. There was a focus of microinvasion, all her margins were (-). The closest being 1 mm from the inferior margin. she opted for no radiation she saw medical oncology Dr. Pinon and told still considered stage 0 and chose no hormone therapy right breast mammogram on 08-13-23 BIRAD 2; she is not complaining of any new lumps or mick of concern in either breast she is due for a left breast mammogram in October 2023 Caffiene: 1 cup/day nicotine: in remote past chocolate: occasional BCP: for bleeding in her 20's Family History: brother: cancer of the liver at 15 brother: esophogeal cancer mother: colon cancer Hormonal History: menarche: 10 , breast fed: yes, age at first : 22 menopause: 49 hormones: none; she is using ginkgo biloba secondary to hot flashes Surgical History: tonisl/adenoids left parotid; then a total parotid left breast biopsy benign left knee torn meniscus right mandible cyst left patotid for face sweating implant dental 2017 2021 bilateral cataract 2021 bilateral carpel tunnel right breast lumpectomy right knee surgery Medical History: heart burn ? mitral valve change decreased hearing Social History: nicotine: remote past alcohol: beer drugs: none - Constitutional Constitutional: Reports sweats - EENT Eyes: bilateral as per HPI Ears: deny: tinnitus Ears, nose, mouth and throat: Denies headache, Denies sore throat - Breasts Breasts: bilateral: as per HPI - Cardiovascular Cardiovascular: Denies chest pain, Denies shortness of breath - Respiratory Respiratory: Denies cough - Gastrointestinal Gastrointestinal: Reports as per HPI - Genitourinary (Female) Genitourinary: Denies dysuria, Denies hematuria - Menstruation Menstruation: Reports postmenopausal - Musculoskeletal Musculoskeletal: Reports as per HPI - Integumentary Integumentary: Denies pruritus, Denies rash - Neurological Neurological: Denies numbness, Denies weakness - Psychiatric Psychiatric: Reports anxiety - Endocrine Endocrine: Denies fatigue, Denies weight change - Hematologic/Lymphatic Comment: none - Allergic/Immunologic Allergic/Immunologic: Reports as per HPI Past Medical History Past Medical History: GERD/Reflux, Osteoarthritis (OA) Additional Past Medical History / Comment(s): hx migraines, Pre diabetic? Leaky Mitral valve? History of Any Multi-Drug Resistant Organisms: None Reported Past Surgical History: Adenoidectomy, Orthopedic Surgery, Tonsillectomy, Tubal Ligation Additional Past Surgical History / Comment(s): left total parpotid surgery, lipoma removal back and left breast lipoma and firoadenoma 1980, MULTIPLE MOUTH SURGERIES, BILATERAL CATARACTS, BILATERAL CARPAL TUNNEL Past Anesthesia/Blood Transfusion Reactions: Motion Sickness Past Psychological History: Anxiety Smoking Status: Former smoker Past Alcohol Use History: Occasional Additional Past Alcohol Use History / Comment(s): quit smoking when teenager Past Drug Use History: None Reported - Past Family History Brother(s) Family Medical History: Cancer Medications and Allergies Home Medications Medication Instructions Recorded Confirmed Type Omeprazole [PriLOSEC] 40 mg PO AC-BRKFST 06/10/15 12/13/22 History ALPRAZolam 1 tab PO AC-TID PRN 06/15/15 12/13/22 History Aspirin [[place] Aspirin EC] 81 mg PO DAILY 11/23/22 12/13/22 History Acetaminophen [Tylenol Extra 500 mg PO DAILY PRN 12/13/22 12/13/22 History Strength] Cholecalciferol [Vitamin D3 (125 125 mcg PO DAILY 12/13/22 12/13/22 History Mcg = 5000 Iu)] Melatonin 5 mg PO DIRECTED PRN 12/13/22 12/13/22 History Multivitamin [Multivitamins Adult 1 tablet PO DAILY 12/13/22 12/13/22 History Gummies] Zinc Gluconate [Zinc] 50 mg PO DAILY 12/13/22 12/13/22 History Allergies Allergy/AdvReac Type Severity Reaction Status Date / Time No Known Allergies Allergy Verified 12/13/22 12:39 Objective - Vital Signs Vital signs: Vital Signs Temp 97.8 F 08/31/23 11:49 Pulse 60 08/31/23 11:49 Resp 17 08/31/23 11:49 BP 135/74 08/31/23 11:49 Pulse Ox 97 08/31/23 11:49 FiO2 Intake & Output 08/30/23 08/31/23 08/31/23 18:59 06:59 18:59 Weight 64.864 kg - Constitutional General appearance: Present: cooperative - EENT Eyes: Present: EOMI ENT: Present: hearing grossly normal - Neck Neck: Present: normal ROM - Respiratory Respiratory: bilateral: CTA - Cardiovascular Heart sounds: normal: S1, S2 - Integumentary Integumentary: Present: normal turgor - Musculoskeletal Musculoskeletal: Present: gait normal - Psychiatric Psychiatric: Present: A&O x's 3, appropriate affect, intact judgment & insight - Additional findings Additional findings: Breast Exam: BRA: 36B Inspection: Bilateral grade 2 ptosis Palpation: Right breast: Multi-positional exam fibrocystic changes, well healed scar right breast Right axilla: No adenopathy of concern Left breast: Multi-positional exam fibrocystic changes no dominant masses or nodules of concern Left axilla: No adenopathy of concern Assessment and Plan Assessment: Impression: 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 Cook
== END ==
LOC: WWCWWP 11:39
PROVIDERS: ATTEND Surgery
DX: D05.11 Intraductal carcinoma in situ of right breast (principal); K21.9 Gastro-esophageal reflux disease without esophagitis; M19.90 Unspecified osteoarthritis, unspecified site; H91.8X9 Other specified hearing loss, unspecified ear; G43.909 Migraine, unspecified, not intractable, without status migrainosus; F41.9 Anxiety disorder, unspecified; Z87.891 Personal history of nicotine dependence; Z79.82 Long term (current) use of aspirin

== ENCOUNTER → 2023-11-26 | Outpatient (CLI) | payer MEDICARE ==
--- NOTE | 2023-11-26 14:23 | MM ---
Reason for Exam: Additional evaluation requested from abnormal screening. Last mammogram was performed 1 year(s) and 1 month(s) ago. Patient History: Menarche at age 11. First Full-Term at age 22. Postmenopausal. Patient has history of breast feeding. Breast cancer, right, age 72. Breast cancer, right, age 73. 02/06/2023, Lumpectomy on the Right side. 02/06/2023, Malignant US breast localization RT on the right side. 12/05/2022, Malignant US biopsy breast VAD RT on the right side. 1979, Benign Excisional Biopsy on the left side. Prior Study Comparison: 08/22/2018 Bilateral Screening Mammogram, [facility]. 10/19/2020 Bilateral Screening Mammogram, [facility]. 11/17/2022 Bilateral MG 3D screening mammo w/cad, [facility]. 11/22/2022 Right MG 3D work up w/cad RT, [facility]. 12/05/2022 Right MG diagnostic mammo RT wo CAD, [facility]. 02/06/2023 Right MG diagnostic mammo RT wo CAD, [facility]. 08/13/2023 Right MG 3D diag mammo w/cad RT, [facility]. Tissue Density: Left: The breasts are heterogeneously dense, which may obscure small masses. Findings: Analyzed By CAD. Left breast was performed. Patient refused right breast imaging for today. Patient will perform a follow-up right breast mammogram in 3 months which is on schedule for the right breast. With the current findings in the left breast. Screening mammography of the left breast can be performed on schedule. Pattern is stable. Small focal asymmetry is within the mid upper outer left breast, stable from comparison studies. No suspicious groups of microcalcifications, spiculated or lobular masses, architectural distortion or other secondary signs of malignancy are mammographically apparent. Overall Assessment: Probably benign, BI-RAD 3 Management: Screening Mammogram of the right breast in 3 months. A negative mammogram report should not preclude additional follow up of suspicious palpable abnormalities. Patient should continue monthly self breast exam. A clinical breast exam by your physician is recommended on an annual basis and results should be correlated with mammographic findings. Electronically signed and approved by: Syed Mejia D.O. Radiologis
== END | disposition home or self-care (01) ==
LOC: RADMAMWWP 13:30
PROVIDERS: ATTEND Surgery
DX: R92.332 Mammographic heterogeneous density, left breast (principal); Z85.3 Personal history of malignant neoplasm of breast; Z78.0 Asymptomatic menopausal state
CPT/HCPCS: 77065; G0279; 77061

== ENCOUNTER → 2023-11-29 | Outpatient (CLI) | payer MEDICARE ==
[2023-11-29 11:00] VITALS: BP 143/85; PULSE 78; RESP 15; TEMP 98.7
--- NOTE | 2023-11-29 11:18 | P.PN ---
Subjective Progress Note Date: 11/29/23 Principal diagnosis: right breast DCIS at 3 oclock 08-31-23 right breast DCIS at 3 oclock History of Present Illness Chief Complaint: DCIS right breast Myranda is a 73 year old white female seen in consultation for Dr. 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 [place] [address]. This resulted in a diagnostic mammogram of the right breast. [place] [address]. This revealed a 0.8 x 0.9 cm hypoechoic area corresponding to the mammographic findings. This was considered suspicious and ultrasound-guided core biopsy was recommended. [place] [address]. A follow-up mammogram revealed the clip to be questionably anterior to the site of the biopsy. 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 She did not feel any new lumps masses or nodules of concern in either breast. She is not complaining of any nipple discharge or skin changes. She had a left breast biopsy in the past by DR. Sushant Tinajero. This was benign. She underwent a right breast lumpectomy for DCIS on 02-06-23. There was a focus of microinvasion, all her margins were (-). The closest being 1 mm from the inferior margin. ER+Pr+Her2- she opted for no radiation she saw medical oncology Dr. Pinon and told still considered stage 0 and chose no hormone therapy right breast mammogram on 08-13-23 BIRAD 2; she is not complaining of any new lumps or mick of concern in either breast she is due for a left breast mammogram on 11-26-23 BIRAD 3 bilateral mammogram in 6 months Caffiene: 1 cup/day nicotine: in remote past chocolate: occasional BCP: for bleeding in her 20's Family History: brother: cancer of the liver at 15 brother: esophogeal cancer mother: colon cancer Hormonal History: menarche: 10 , breast fed: yes, age at first : 22 menopause: 49 hormones: none; she is using ginkgo biloba secondary to hot flashes Surgical History: tonisl/adenoids left parotid; then a total parotid left breast biopsy benign left knee torn meniscus right mandible cyst left patotid for face sweating implant dental 2017 2021 bilateral cataract 2022 bilateral carpel tunnel right breast lumpectomy right knee surgery Medical History: heart burn ? mitral valve change decreased hearing Social History: nicotine: remote past alcohol: beer drugs: none - Constitutional Constitutional: Reports sweats - EENT Eyes: bilateral as per HPI Ears: deny: tinnitus Ears, nose, mouth and throat: Denies headache, Denies sore throat - Breasts Breasts: bilateral: as per HPI - Cardiovascular Cardiovascular: Denies chest pain, Denies shortness of breath - Respiratory Respiratory: Denies cough - Gastrointestinal Gastrointestinal: Reports as per HPI - Genitourinary (Female) Genitourinary: Denies dysuria, Denies hematuria - Menstruation Menstruation: Reports postmenopausal - Musculoskeletal Musculoskeletal: Reports as per HPI - Integumentary Integumentary: Denies pruritus, Denies rash - Neurological Neurological: Denies numbness, Denies weakness - Psychiatric Psychiatric: Reports anxiety - Endocrine Endocrine: Denies fatigue, Denies weight change - Hematologic/Lymphatic Comment: none - Allergic/Immunologic Allergic/Immunologic: Reports as per HPI Past Medical History Past Medical History: GERD/Reflux, Osteoarthritis (OA) Additional Past Medical History / Comment(s): hx migraines, Pre diabetic? Leaky Mitral valve? History of Any Multi-Drug Resistant Organisms: None Reported Past Surgical History: Adenoidectomy, Orthopedic Surgery, Tonsillectomy, Tubal Ligation Additional Past Surgical History / Comment(s): left total parpotid surgery, lipoma removal back and left breast lipoma and firoadenoma 1979, MULTIPLE MOUTH SURGERIES, BILATERAL CATARACTS, BILATERAL CARPAL TUNNEL Past Anesthesia/Blood Transfusion Reactions: Motion Sickness Past Psychological History: Anxiety Smoking Status: Former smoker Past Alcohol Use History: Occasional Additional Past Alcohol Use History / Comment(s): quit smoking when teenager Past Drug Use History: None Reported - Past Family History Brother(s) Family Medical History: Cancer Medications and Allergies Home Medications Medication Instructions Recorded Confirmed Type Omeprazole [PriLOSEC] 40 mg PO AC-BRKFST 06/10/15 12/13/22 History ALPRAZolam 1 tab PO AC-TID PRN 06/15/15 12/13/22 History Aspirin [[place] Aspirin EC] 81 mg PO DAILY 11/23/22 12/13/22 History Acetaminophen [Tylenol Extra 500 mg PO DAILY PRN 12/13/22 12/13/22 History Strength] Cholecalciferol [Vitamin D3 (125 125 mcg PO DAILY 12/13/22 12/13/22 History Mcg = 5000 Iu)] Melatonin 5 mg PO DIRECTED PRN 12/13/22 12/13/22 History Multivitamin [Multivitamins Adult 1 tablet PO DAILY 12/13/22 12/13/22 History Gummies] Zinc Gluconate [Zinc] 50 mg PO DAILY 12/13/22 12/13/22 History Allergies Allergy/AdvReac Type Severity Reaction Status Date / Time No Known Allergies Allergy Verified 12/13/22 12:39 Objective - Vital Signs Vital signs: Vital Signs Temp 98.7 F 11/29/23 10:50 Pulse 78 11/29/23 10:50 Resp 15 11/29/23 10:50 BP 143/85 11/29/23 10:50 Pulse Ox 99 11/29/23 10:50 FiO2 Intake & Output 11/28/23 11/29/23 11/29/23 18:59 06:59 18:59 Weight 65.771 kg - Constitutional General appearance: Present: cooperative - EENT Eyes: Present: EOMI - Neck Neck: Present: normal ROM - Respiratory Respiratory: bilateral: CTA - Cardiovascular Rhythm: regular Heart sounds: normal: S1, S2 - Gastrointestinal General gastrointestinal: Present: soft - Integumentary Integumentary: Present: normal turgor - Musculoskeletal Musculoskeletal: Present: gait normal - Psychiatric Psychiatric: Present: A&O x's 3, appropriate affect, intact judgment & insight - Additional findings Additional findings: Breast Exam: BRA: 36B Inspection: Bilateral grade 2 ptosis Palpation: Right breast: Multi-positional exam fibrocystic changes, well healed scar right breast Right axilla: No adenopathy of concern Left breast: Multi-positional exam fibrocystic changes no dominant masses or nodules of concern Left axilla: No adenopathy of concern Assessment and Plan Assessment: Impression: 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 Cook Additional CC's: Sona Cook
== END ==
LOC: WWCWWP 10:00
PROVIDERS: ATTEND Surgery
DX: R92.8 Other abnormal and inconclusive findings on diagnostic imaging of breast (principal); D05.11 Intraductal carcinoma in situ of right breast; H91.90 Unspecified hearing loss, unspecified ear; Z98.51 Tubal ligation status; Z87.891 Personal history of nicotine dependence

== ENCOUNTER → 2024-05-27 | Outpatient (CLI) | payer MEDICARE ==
--- NOTE | 2024-05-27 14:04 | US ---
EXAMINATION TYPE: US carotid duplex BILAT DATE OF EXAM: 05/27/2024 COMPARISON: NONE CLINICAL INDICATION: Female, 74 years old with history of I65.23 carotid stenosis; Stenosis TECHNIQUE: Grayscale, color Doppler and spectral Doppler evaluation of the bilateral carotid systems and vertebral arteries.Indirect Doppler criteria was utilized. FINDINGS: EXAM MEASUREMENTS: RIGHT: Peak Systolic Velocity (PSV) cm/sec ----- Right CCA: 53.8 ----- Right ICA: 64.2 ----- Right ECA: 83.1 ICA/CCA ratio: 1.2 RIGHT: End Diastole cm/sec ----- Right CCA: 17.5 ----- Right ICA: 21.5 ----- Right ECA: 13.8 LEFT: Peak Systolic Velocity (PSV) cm/sec ----- Left CCA: 85.9 ----- Left ICA: 83.1 ----- Left ECA: 86.4 ICA/CCA ratio: 1.0 LEFT: End Diastole cm/sec ----- Left CCA: 22.9 ----- Left ICA: 34.7 ----- Left ECA: 8.4 VERTEBRALS (direction of flow): Right Vertebral: Antegrade Left Vertebral: Antegrade Rhythm: Normal BOILER WATER TESTER NOTES: Minimal plaque bilaterally. No significant stenosis seen IMPRESSION: No significant hemodynamic stenosis identified. Criteria for Assigning % of Stenosis / Diameter reduction (Estimation based on the indirect measurements of the internal carotid artery velocities (ICA PSV). 1. Normal (no stenosis)=ICA PSV < 125 cm/s: ratio < 2.0: ICA EDV<40 cm/s. 2. Less than 50% stenosis=ICA PSV < 125 cm/s: ratio < 2.0: ICA EDV<40 cm/s. 3. 50 to 69% stenosis=ICA PSV of 125 to 230 cm/s: ration 2.0 ? 4.0: ICA EDV 40-100 cm/s. 4. Greater than 70% stenosis to near occlusion= ICA PSV > 230 cm/s: ratio > 4.0: ICA EDV > 100 cm/s. 5. Near occlusion= ICA PSV velocities may be low or undetectable: variable ratio and ICA EDV. 6. Total occlusion=unable to detect flow. [facility], , 05/27/2024 2:02 PM
--- NOTE | 2024-05-27 17:06 | CA ---
Transthoracic Echo Report Name: Myranda Rodriguez Age: 74 Gender: F : 1950 Exam Date: 05/27/2024 13:59 Exam Location: [facility] Ht (in): 66 Wt (lb): 148 Ordering Physician: Sona Cook MD Attending/Referring Phys: Fulfillment Specialist Sofia Tatum RDCS Procedure CPT: Indications: I34.0 NONTHEUMATIC MITRAL VALVE REGURGITATION Cardiac Hx: Technical Quality: Fair Contrast 1: Total Dose (mL): Contrast 2: Total Dose (mL): MEASUREMENTS (Male / Female) Normal Values 2D ECHO LV Diastolic Diameter PLAX 4.2 cm 4.2 - 5.9 / 3.9 - 5.3 cm LV Systolic Diameter PLAX 3.2 cm IVS Diastolic Thickness 1.0 cm 0.6 - 1.0 / 0.6 - 0.9 cm LVPW Diastolic Thickness 1.0 cm 0.6 - 1.0 / 0.6 - 0.9 cm LV Relative Wall Thickness 0.5 RV Internal Dim ED PLAX 3.2 cm LA Systolic Diameter LX 3.2 cm 3.0 - 4.0 / 2.7 - 3.8 cm LV Diastolic Volume MOD 4C 70.3 cm??? LV Systolic Volume MOD 4C 31.9 cm??? LV Ejection Fraction MOD 4C 54.7 % LV Cardiac Index MOD 4C 2013.9 cm???/min???m??? LV Diastolic Length 4C 9.5 cm LV Systolic Length 4C 7.8 cm LV Diastolic Volume MOD 2C 74.5 cm??? LV Systolic Volume MOD 2C 30.2 cm??? LV Ejection Fraction MOD 2C 59.4 % LV Cardiac Index MOD 2C 2318.0 cm???/min???m??? LV Diastolic Length 2C 9.6 cm LV Systolic Length 2C 8.1 cm M-MODE Aortic Root Diameter MM 3.2 cm AV Cusp Separation MM 2.1 cm DOPPLER AV Peak Velocity 128.1 cm/s AV Peak Gradient 6.6 mmHg Mitral E Point Velocity 70.7 cm/s Mitral A Point Velocity 99.9 cm/s Mitral E to A Ratio 0.7 MV Deceleration Time 86.5 ms MV E' Velocity 6.5 cm/s Mitral E to MV E' Ratio 10.9 TR Peak Velocity 235.4 cm/s TR Peak Gradient 22.2 mmHg Right Ventricular Systolic Press 32.2 mmHg FINDINGS Left Ventricle Left ventricular ejection fraction is estimated at 50-55 %. Left ventricular cavity size normal. Left ventricular wall thickness normal. Normal left ventricular wall motion. Right Ventricle Normal right ventricular size and function. Right ventricular systolic pressure within normal limits. Right Atrium Normal right atrial size. No right atrial thrombus or mass seen. Left Atrium Normal left atrial size. No left atrial thrombus or mass present. Mitral Valve Structurally normal mitral valve. No evidence for mitral valve prolapse. No mitral stenosis. Mild mitral regurgitation. Aortic Valve Trileaflet aortic valve. No aortic valve stenosis or regurgitation. Tricuspid Valve Structurally normal tricuspid valve. Mild tricuspid regurgitation. Pulmonic Valve Structurally normal pulmonic valve. No pulmonic regurgitation. Pericardium No pericardial or pleural effusion. Aorta Normal size aortic root and proximal ascending aorta. CONCLUSIONS Normal LV function Mild mitral regurgitation Previewed by: Dr. Aron Stewart MD (Electronically Signed) Final Date: 27 May 2024 17:06
== END | disposition home or self-care (01) ==
LOC: RADUSWWP 13:28
PROVIDERS: ATTEND Internal Medicine
DX: I65.23 Occlusion and stenosis of bilateral carotid arteries
CPT/HCPCS: 93306; 93880

== ENCOUNTER → 2024-06-09 | Outpatient (CLI) | payer MEDICARE ==
--- NOTE | 2024-06-09 10:13 | MM ---
Reason for Exam: Additional evaluation requested from prior study. Last mammogram was performed 1 year(s) and 7 month(s) ago. Patient History: Menarche at age 11. First Full-Term at age 22. Postmenopausal. Patient has history of breast feeding. Breast cancer, right, age 72. Breast cancer, right, age 73. 02/06/2023, Lumpectomy on the Right side. 02/06/2023, Malignant US breast localization RT on the right side. 12/05/2022, Malignant US biopsy breast VAD RT on the right side. 1979, Benign Excisional Biopsy on the left side. Prior Study Comparison: 08/22/2018 Bilateral Screening Mammogram, [facility]. 10/19/2020 Bilateral Screening Mammogram, [facility]. 11/17/2022 Bilateral MG 3D screening mammo w/cad, [facility]. 08/13/2023 Right MG 3D diag mammo w/cad RT, [facility]. 11/26/2023 Left MG 3D diag mammo w/cad LT, [facility]. Tissue Density: There are scattered areas of fibroglandular density. Findings: Analyzed By CAD. Right breast surgical clips. No new suspicious masses, calcifications or distortions. Overall Assessment: Benign, BI-RAD 2 Management: Screening Mammogram of both breasts in 1 year. Results were given to the patient verbally at the time of exam. Patient should continue monthly self-breast exams. A clinical breast exam by your physician is recommended on an annual basis. This exam should not preclude additional follow-up of suspicious palpable abnormalities. Note on Patty scores and lifetime risk: 1. A Patty score greater than 3% is considered moderate risk. If this is the case, consider specialist referral to assess eligibility for a risk reducing agent. 2. If overall lifetime risk for the development of breast cancer is 20% or higher, the patient may qualify for future screening with alternating mammogram and breast MRI. [facility], , 06/09/2024 10:02 AM. Electronically signed and approved by: Miguel Angel Cash DO
== END ==
LOC: RADMAMWWP 09:43
PROVIDERS: ATTEND Surgery
CPT/HCPCS: 77062; 77066

== ENCOUNTER → 2024-06-20 | Outpatient (CLI) | payer MEDICARE ==
[2024-06-20 14:49] VITALS: BP 143/82; PULSE 79; RESP 17; TEMP 97.9
--- NOTE | 2024-06-20 14:58 | P.PN ---
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 [place] [address]. This resulted in a diagnostic mammogram of the right breast. [place] [address]. This revealed a 0.8 x 0.9 cm hypoechoic area corresponding to the mammographic findings. This was considered suspicious and ultrasound-guided core biopsy was recommended. [place] [address]. A follow-up mammogram revealed the clip to be questionably anterior to the site of the biopsy. 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 She did not feel any new lumps masses or nodules of concern in either breast. She was not complaining of any nipple discharge or skin changes. She had a left breast biopsy in the past by DR. Sushant Tinajero. This was benign. She underwent a right breast lumpectomy for DCIS on 02-06-23. There was a focus of microinvasion, all her margins were (-). The closest being 1 mm from the inferior margin. ER+Pr+Her2- she opted for no radiation she saw medical oncology Dr. Pinon and told still considered stage 0 and chose no hormone therapy Planing of any new lumps masses or nodules of concern in either breast. bilateral mammogram on 06-09-24 BIRAD 2, personally interpreted Caffiene: 1 cup/day nicotine: in remote past chocolate: occasional BCP: for bleeding in her 20's Family History: brother: cancer of the liver at 15 brother: esophogeal cancer mother: colon cancer Hormonal History: menarche: 10 , breast fed: yes, age at first : 22 menopause: 49 hormones: none; she is using ginkgo biloba secondary to hot flashes Surgical History: tonisl/adenoids left parotid; then a total parotid left breast biopsy benign left knee torn meniscus right mandible cyst left patotid for face sweating implant dental 2017 2021 bilateral cataract 2021 bilateral carpel tunnel right breast lumpectomy right knee surgery Medical History: heart burn ? mitral valve change decreased hearing Social History: nicotine: remote past alcohol: beer drugs: none - Constitutional Constitutional: Reports sweats - EENT Eyes: bilateral as per HPI Ears: deny: tinnitus Ears, nose, mouth and throat: Denies headache, Denies sore throat - Breasts Breasts: bilateral: as per HPI - Cardiovascular Cardiovascular: Denies chest pain, Denies shortness of breath - Respiratory Respiratory: Denies cough - Gastrointestinal Gastrointestinal: Reports as per HPI - Genitourinary (Female) Genitourinary: Denies dysuria, Denies hematuria - Menstruation Menstruation: Reports postmenopausal - Musculoskeletal Musculoskeletal: Reports as per HPI - Integumentary Integumentary: Denies pruritus, Denies rash - Neurological Neurological: Denies numbness, Denies weakness - Psychiatric Psychiatric: Reports anxiety - Endocrine Endocrine: Denies fatigue, Denies weight change - Hematologic/Lymphatic Comment: none - Allergic/Immunologic Allergic/Immunologic: Reports as per HPI Past Medical History Past Medical History: GERD/Reflux, Osteoarthritis (OA) Additional Past Medical History / Comment(s): hx migraines, Pre diabetic? Leaky Mitral valve? History of Any Multi-Drug Resistant Organisms: None Reported Past Surgical History: Adenoidectomy, Orthopedic Surgery, Tonsillectomy, Tubal Ligation Additional Past Surgical History / Comment(s): left total parpotid surgery, lipoma removal back and left breast lipoma and firoadenoma 1980, MULTIPLE MOUTH SURGERIES, BILATERAL CATARACTS, BILATERAL CARPAL TUNNEL Past Anesthesia/Blood Transfusion Reactions: Motion Sickness Past Psychological History: Anxiety Smoking Status: Former smoker Past Alcohol Use History: Occasional Additional Past Alcohol Use History / Comment(s): quit smoking when teenager Past Drug Use History: None Reported - Past Family History Brother(s) Family Medical History: Cancer Medications and Allergies Home Medications Medication Instructions Recorded Confirmed Type Omeprazole [PriLOSEC] 40 mg PO AC-BRKFST 06/10/15 12/13/22 History ALPRAZolam 1 tab PO AC-TID PRN 06/15/15 12/13/22 History Aspirin [[place] Aspirin EC] 81 mg PO DAILY 11/23/22 12/13/22 History Acetaminophen [Tylenol Extra 500 mg PO DAILY PRN 12/13/22 12/13/22 History Strength] Cholecalciferol [Vitamin D3 (125 125 mcg PO DAILY 12/13/22 12/13/22 History Mcg = 5000 Iu)] Melatonin 5 mg PO DIRECTED PRN 12/13/22 12/13/22 History Multivitamin [Multivitamins Adult 1 tablet PO DAILY 12/13/22 12/13/22 History Gummies] Zinc Gluconate [Zinc] 50 mg PO DAILY 12/13/22 12/13/22 History Allergies Allergy/AdvReac Type Severity Reaction Status Date / Time No Known Allergies Allergy Verified 12/13/22 12:39 Objective - Vital Signs Vital signs: Vital Signs Temp 97.9 F 06/20/24 14:46 Pulse 79 06/20/24 14:46 Resp 17 06/20/24 14:46 BP 143/82 06/20/24 14:46 Pulse Ox 97 06/20/24 14:46 FiO2 Intake & Output 06/19/24 06/20/24 06/20/24 18:59 06:59 18:59 Weight 64.864 kg - Constitutional General appearance: Present: cooperative - EENT Eyes: Present: EOMI ENT: Present: hearing grossly normal - Neck Neck: Present: normal ROM - Respiratory Respiratory: bilateral: CTA - Cardiovascular Rhythm: regular - Integumentary Integumentary: Present: normal turgor - Musculoskeletal Musculoskeletal: Present: gait normal - Psychiatric Psychiatric: Present: A&O x's 3, appropriate affect, intact judgment & insight - Additional findings Additional findings: Breast Exam: BRA: 36B Inspection: Bilateral grade 2 ptosis Palpation: Right breast: Multi-positional exam fibrocystic changes, well healed scar right breast Right axilla: No adenopathy of concern Left breast: Multi-positional exam fibrocystic changes no dominant masses or nodules of concern Left axilla: No adenopathy of concern Assessment and Plan Assessment: Impression: Right breast ductal carcinoma in situ 9 mm Decreased hearing Questionable mitral valve disease bilateral mammogram 06-09-24 BIRAD 2, personally reviewed Plan: Bilateral mammogram in one year, May 2025 appointment in 6 months Patient to follow up sooner any questions or concerns CC: Dr. Cook
== END ==
LOC: WWCWWP 14:39
PROVIDERS: ATTEND Surgery

== ENCOUNTER → 2024-12-18 | Outpatient (CLI) | payer MEDICARE ==
[2024-12-18 15:17] VITALS: BP 161/80; PULSE 61; RESP 17; TEMP 97.9
--- NOTE | 2024-12-18 15:28 | P.PN ---
Subjective Progress Note Date: 12/18/24 Principal diagnosis: right breast DCIS/focus of microinvasion 12-18-24 Principal diagnosis: right breast DCIS/focus of microinvasion History of Present Illness Chief Complaint: DCIS right breast Myranda is a 73 year old white female seen in consultation for Dr. 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 [place] [id number]. This resulted in a diagnostic mammogram of the right breast. [place] [address]. This revealed a 0.8 x 0.9 cm hypoechoic area corresponding to the mammographic findings. This was considered suspicious and ultrasound-guided core biopsy was recommended. The ultrasound core biopsy was performed on . A follow-up mammogram revealed the clip to be que stionably anterior to the site of the biopsy. 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 She did not feel any new lumps masses or nodules of concern in either breast. She was not complaining of any nipple discharge or skin changes. She had a left breast biopsy in the past by DR. Sushant Tinajero. This was benign. She underwent a right breast lumpectomy for DCIS on 02-06-23. There was a focus of microinvasion, all her margins were (-). The closest being 1 mm from the inferior margin. ER+Pr+Her2- she opted for no radiation she saw medical oncology Dr. Pinon and told still considered stage 0 and chose no hormone therapy She is not complaning of any new lumps masses or nodules of concern in either breast. bilateral mammogram on 06-09-24 BIRAD 2 Caffiene: 1 cup/day nicotine: in remote past chocolate: occasional BCP: for bleeding in her 20's Family History: brother: cancer of the liver at 15 brother: esophogeal cancer mother: colon cancer Hormonal History: menarche: 10 , breast fed: yes, age at first : 22 menopause: 49 hormones: none; she is using ginkgo biloba secondary to hot flashes Surgical History: tonisl/adenoids left parotid; then a total parotid left breast biopsy benign left knee torn meniscus right mandible cyst left patotid for face sweating implant dental 2017 2021 bilateral cataract 2021 bilateral carpel tunnel right breast lumpectomy right knee surgery Medical History: heart burn ? mitral valve change decreased hearing Social History: nicotine: remote past alcohol: beer drugs: none - Constitutional Constitutional: Reports sweats - EENT Eyes: bilateral as per HPI Ears: deny: tinnitus Ears, nose, mouth and throat: Denies headache, Denies sore throat - Breasts Breasts: bilateral: as per HPI - Cardiovascular Cardiovascular: Denies chest pain, Denies shortness of breath - Respiratory Respiratory: Denies cough - Gastrointestinal Gastrointestinal: Reports as per HPI - Genitourinary (Female) Genitourinary: Denies dysuria, Denies hematuria - Menstruation Menstruation: Reports postmenopausal - Musculoskeletal Musculoskeletal: Reports as per HPI - Integumentary Integumentary: Denies pruritus, Denies rash - Neurological Neurological: Denies numbness, Denies weakness - Psychiatric Psychiatric: Reports anxiety - Endocrine Endocrine: Denies fatigue, Denies weight change - Hematologic/Lymphatic Comment: none - Allergic/Immunologic Allergic/Immunologic: Reports as per HPI Past Medical History Past Medical History: GERD/Reflux, Osteoarthritis (OA) Additional Past Medical History / Comment(s): hx migraines, Pre diabetic? Leaky Mitral valve? History of Any Multi-Drug Resistant Organisms: None Reported Past Surgical History: Adenoidectomy, Orthopedic Surgery, Tonsillectomy, Tubal Ligation Additional Past Surgical History / Comment(s): left total parpotid surgery, lipoma removal back and left breast lipoma and firoadenoma 1980, MULTIPLE MOUTH SURGERIES, BILATERAL CATARACTS, BILATERAL CARPAL TUNNEL Past Anesthesia/Blood Transfusion Reactions: Motion Sickness Past Psychological History: Anxiety Smoking Status: Former smoker Past Alcohol Use History: Occasional Additional Past Alcohol Use History / Comment(s): quit smoking when teenager Past Drug Use History: None Reported - Past Family History Brother(s) Family Medical History: Cancer Medications and Allergies Home Medications Medication Instructions Recorded Confirmed Type Omeprazole [PriLOSEC] 40 mg PO AC-BRKFST 06/10/15 12/13/22 History ALPRAZolam 1 tab PO AC-TID PRN 06/15/15 12/13/22 History Aspirin [[place] Aspirin EC] 81 mg PO DAILY 11/23/22 12/13/22 History Acetaminophen [Tylenol Extra 500 mg PO DAILY PRN 12/13/22 12/13/22 History Strength] Cholecalciferol [Vitamin D3 (125 125 mcg PO DAILY 12/13/22 12/13/22 History Mcg = 5000 Iu)] Melatonin 5 mg PO DIRECTED PRN 12/13/22 12/13/22 History Multivitamin [Multivitamins Adult 1 tablet PO DAILY 12/13/22 12/13/22 History Gummies] Zinc Gluconate [Zinc] 50 mg PO DAILY 12/13/22 12/13/22 History Allergies Allergy/AdvReac Type Severity Reaction Status Date / Time No Known Allergies Allergy Verified 12/13/22 12:39 Objective - Vital Signs Vital signs: Vital Signs Temp 97.9 F 12/18/24 15:13 Pulse 61 12/18/24 15:13 Resp 17 12/18/24 15:13 BP 161/80 12/18/24 15:13 Pulse Ox 97 12/18/24 15:13 FiO2 Intake & Output 12/17/24 12/18/24 12/18/24 18:59 06:59 18:59 Weight 66.678 kg - Constitutional General appearance: Present: cooperative - EENT Eyes: Present: EOMI ENT: Present: hearing grossly normal - Neck Neck: Present: normal ROM - Respiratory Respiratory: bilateral: CTA - Cardiovascular Rhythm: regular Heart sounds: normal: S1, S2 - Integumentary Integumentary: Present: normal turgor - Musculoskeletal Musculoskeletal: Present: gait normal - Psychiatric Psychiatric: Present: A&O x's 3, appropriate affect, intact judgment & insight - Additional findings Additional findings: Breast Exam: BRA: 36B Inspection: Bilateral grade 2 ptosis Palpation: Right breast: Multi-positional exam fibrocystic changes, well healed scar right breast Right axilla: No adenopathy of concern Left breast: Multi-positional exam fibrocystic changes no dominant masses or nodules of concern Left axilla: No adenopathy of concern Assessment and Plan Assessment: Impression: Right breast ductal carcinoma in situ 9 mm Decreased hearing Questionable mitral valve disease bilateral mammogram 06-09-24 BIRAD 2, personally reviewed Plan: Bilateral mammogram in 6 months, May 2025 with appointment Patient to follow up sooner any questions or concerns CC: Dr. Cook
== END ==
LOC: WWCWWP 14:19
PROVIDERS: ATTEND Surgery
DX: Z12.31 Encounter for screening mammogram for malignant neoplasm of breast (principal); D05.11 Intraductal carcinoma in situ of right breast; I34.9 Nonrheumatic mitral valve disorder, unspecified; Z87.891 Personal history of nicotine dependence